=== PATIENT | male | born 1955 | race Caucasian/White ===

== ENCOUNTER 2021-03-15 11:03 | Emergency (ER) | payer OTHER, MEDICARE, SELFPAY ==
[2021-03-15 11:35] VITALS: BP 164/96; PULSE 69; RESP 18; TEMP 36.1; O2SAT 98; BMI 25.4
--- NOTE | 2021-03-15 12:27 | ED.EXTPRO ---
HPI - Extremity Problem General Chief complaint: Extremity Injury, Lower Stated complaint: lt leg swelling & pain Time Seen by Provider: 03/15/21 11:56 Source: patient Mode of arrival: ambulatory Limitations: no limitations History of Present Illness HPI Narrative: 65 y/o male presenting with 1 month of intermittent left anterior leg pains that comes and goes. He denies and injury of trauma. He reports severe sharp shooting pains that occur randomly throughout the day. Pain is in the front of his left leg just below his knee. He feels like it is swollen side. He denies any redness or or external swelling. He admits to having ?bad knees ?and is due to see his orthopedist on April 05 to discuss knee replacements. MD Complaint: extremity pain Onset (ago): week(s) (4) Pain Consistency: intermittent Location: left Severity scale (1-10): 8 Radiation: none Exacerbating factors: palpation Associated symptoms: denies other symptoms Related Data Previous Rx's Medication Instructions Recorded naproxen 500 mg tablet 500 mg PO BID #14 tab 03/15/21 Allergies Allergy/AdvReac Type Severity Reaction Status Date / Time No Known Allergies Allergy Verified 03/15/21 11:41 Review of Systems Review of Systems: Constitutional: No Fever, No Chills Cardiovascular: No Chest Pain, No SOB, No Edema Respiratory: No Cough, No Sputum Gastrointestinal: No Nausea, No Vomiting, No abdominal Pain Musculoskeletal: No joint pain, + Myalgias Skin: No Skin Lesions, No rash Neuro: No Weakness, No Numbness Heme/Lymph: No Bruising, No Lymphadenopathy PMFSH Past Medical History Surgical History (Updated 03/15/21 @ 11:40 by Jessica Ralph) History of prostate surgery Social History Social History Advance Directives: Yes Advance Directives Information Provided: Yes Advance Directives on File: No Physical Exam Vital Signs: Vital Signs: Last Vital Signs Temp 97.0 F 03/15/21 11:35 Pulse 69 03/15/21 11:35 Resp 18 03/15/21 11:35 BP 164/96 H 03/15/21 11:35 Pulse Ox 98 03/15/21 11:35 Body Mass Index 25.4 Appearance: Alert. Oriented X3. No acute distress. HEENT: normal inspection CVS: Normal heart rate and rhythm. Pulses normal. Respiratory: No respiratory distress. Skin: Skin warm and dry. Normal skin color. Normal skin turgor. No rashes. Extremities: normal inspection of bilateral lower extremities, tender area on proximal lower leg anterior aspect without swelling, warmth or skin changes. no calf tenderness or swelling. normal plantar and dorsiflexion. Normal range of motion of the knee. Neurovascularly intact distally. Neuro: Oriented X 3. No motor deficit. No sensory deficit. Ambulates with a steady gait, no limp Course Course Course Narrative: 65 yo male presenting with nontraumatic intermittent LLE pain x1 month. No signs or symptoms of DVT, no indication for ultrasound at this time. His pain is anterior only. He has tenderness approximately over the areas of the tibialis anterior and fibulious longus. No point tenderness. He has normal range of motion of the ankle knee and hip. Question of tendonitis. Will treat with 7 days of anti-inflammatory, compression and have him follow-up with his orthopedic. He has an appointment of . Stable for discharge home with the above treatment, patient will follow-up with his primary care and Orthopedic. Discharge Plan Discharge Clinical Impression: Tendonitis Patient Disposition: Home, Self-Care Instructions: Tendinitis (ED) Additional Instructions: Take the prescribed anti-inflammatory 2 times a day for 1 week. Recommend taking with food. Use the Deshaun wrap for compression and support. Do not sleep in it. Follow-up with your computer support specialist as scheduled. If you develop new or worsening symptoms call 911 or come back to the ER for further evaluation. Prescriptions: New naproxen 500 mg tablet 500 mg PO BID Qty: 14 RF: 0 Interventions: ED Discharge Assessment Last Done: 03/15/21 12:49 Discharge Date/Time: 03/15/21 12:50
== END 2021-03-15 12:50 | disposition home or self-care (01) ==
PROVIDERS: Emergency Provider Emergency Medicine; PCP Internal Medicine
DX: M76.9 Unspecified enthesopathy, lower limb, excluding foot (principal)
CPT/HCPCS: 99283